=== PATIENT | female | born 1940 | race Caucasian/White ===

== ENCOUNTER → 2017-12-24 08:25 | Outpatient (CLI) | payer MEDICARE, BC, SELFPAY ==
--- NOTE | 2017-12-24 08:28 | DI.RAD.S_ITS ---
PROCEDURE: XR RIBS RT 2V INDICATIONS: pain right upper flank TECHNIQUE: 2 views of the right ribs were acquired. COMPARISON: [facility], , CHEST 2 VIEW, 07/12/2017, 15:19. FINDINGS: Surgical changes and devices: None. Bones and chest wall: Acute fracture right fifth rib. No suspicious bony lesions. Overlying soft tissues appear unremarkable. Lungs and pleura: The visualized lung appears clear. No pleural effusions or pneumothorax are visible. IMPRESSION: Fracture right fifth rib, and no pneumothorax. Dictated by: Milton Zavaleta M.D. on 12/24/2017 at 8:46 Approved by: Milton Zavaleta M.D. on 12/24/2017 at 8:49
== END ==
PROVIDERS: Family Provider Physician Assistant; PCP Physician Assistant
DX: S22.31XA Fracture of one rib, right side, initial encounter for closed fracture (principal)
CPT/HCPCS: 71100

== ENCOUNTER → 2018-05-20 08:08 | Outpatient (CLI) | payer MEDICARE, BC, SELFPAY ==
[2018-05-20 09:16] LABS: Alanine Aminotransferase 30 IU/L (9-52); Albumin 4.2 g/dL (3.5-5.0); Albumin Globulin Ratio 1.4 (1.0-2.8); Alkaline Phosphatase 76 U/L (38-126); Aspartate Aminotransferase 32 IU/L (14-36); BUN Creatinine Ratio 41.4 (6-22); Bilirubin Total 0.6 mg/dL (0.2-1.3); Blood Urea Nitrogen 29 mg/dL (7-17); Calcium 9.1 mg/dL (8.4-10.2); Carbon Dioxide 30 mmol/L (22-32); Chloride 105 mmol/L (98-107); Cholesterol 132 mg/dL (140-199); Estimated Glomerular Filt Rate > 60.0 mL/min (>60); Globulin 3.1 g/dL (1.7-4.1); Glucose 91 mg/dL (80-110); HDL Cholesterol 60 mg/dL (40-60); HEMOLYSIS < 15 (0-50); LDL Cholesterol Calculated 57 mg/dL (<100); Potassium 3.7 mmol/L (3.4-5.1); Sodium 144 mmol/L (137-145); Total Protein 7.3 g/dL (6.3-8.2); Triglycerides 73 mg/dL (35-150)
== END ==
PROVIDERS: Family Provider Physician Assistant; PCP Physician Assistant; Visit Provider Internal Medicine Cardiovascular Disease
DX: I25.10 Atherosclerotic heart disease of native coronary artery without angina pectoris (principal)
CPT/HCPCS: 36415; 80053; 80061

== ENCOUNTER → 2018-05-29 09:55 | Outpatient (CLI) | payer MEDICARE, BC, SELFPAY ==
--- NOTE | 2018-05-29 09:58 | DI.RAD.S_ITS ---
PROCEDURE: XR KNEE LT 3V INDICATIONS: LEFT KNEE PAIN - CHRONIC TECHNIQUE: 3 views of the knee were acquired. COMPARISON: None. FINDINGS: Bones: No fractures or dislocations. No suspicious bony lesions. Chondrocalcinosis is present. There is mild narrowing of the medial and lateral joint spaces. Diffuse degenerative spurring. Small joint effusion. IMPRESSION: Mild degenerative joint disease. Small joint effusion. Chondrocalcinosis. Dictated by: Dl Purdy M.D. on 05/29/2018 at 13:38 Approved by: Dl Purdy M.D. on 05/29/2018 at 13:39
== END ==
PROVIDERS: Family Provider Physician Assistant; PCP Physician Assistant; Visit Provider Physician Assistant
DX: M25.562 Pain in left knee (principal); M17.12 Unilateral primary osteoarthritis, left knee; M25.462 Effusion, left knee; M11.262 Other chondrocalcinosis, left knee
CPT/HCPCS: 73562

== ENCOUNTER → 2018-06-27 09:03 | Outpatient (CLI) | payer MEDICARE, BC, SELFPAY ==
[2018-06-27 11:11] LABS: BUN Creatinine Ratio 37.1 (6-22); Blood Urea Nitrogen 26 mg/dL (7-17); Calcium 9.4 mg/dL (8.4-10.2); Carbon Dioxide 26 mmol/L (22-32); Chloride 99 mmol/L (98-107); Estimated Glomerular Filt Rate > 60.0 mL/min (>60); Glucose 86 mg/dL (80-110); HEMOLYSIS < 15 (0-50); Potassium 4.4 mmol/L (3.4-5.1); Sodium 137 mmol/L (137-145)
== END ==
PROVIDERS: Family Provider Physician Assistant; PCP Physician Assistant; Visit Provider Internal Medicine Cardiovascular Disease
DX: I10 Essential (primary) hypertension (principal)
CPT/HCPCS: 36415; 80048

== ENCOUNTER → 2019-05-16 11:02 | Outpatient (CLI) | payer MEDICARE, BC, SELFPAY ==
[2019-05-16 12:48] LABS: Alanine Aminotransferase 25 IU/L (<35); Albumin 4.3 g/dL (3.5-5.0); Albumin Globulin Ratio 1.6 (1.0-2.8); Alkaline Phosphatase 88 U/L (38-126); Aspartate Aminotransferase 32 IU/L (14-36); BUN Creatinine Ratio 32.9 (6-22); Bilirubin Total 0.8 mg/dL (0.2-1.3); Blood Urea Nitrogen 23 mg/dL (7-17); Calcium 9.7 mg/dL (8.4-10.2); Carbon Dioxide 28 mmol/L (22-32); Chloride 102 mmol/L (98-107); Cholesterol 147 mg/dL (140-199); Estimated Glomerular Filt Rate > 60.0 mL/min (>60); Globulin 2.7 g/dL (1.7-4.1); Glucose 97 mg/dL (80-110); HDL Cholesterol 64 mg/dL (40-60); HEMOLYSIS < 15 (0-50); LDL Cholesterol Calculated 64 mg/dL (<100); Potassium 4.2 mmol/L (3.4-5.1); Sodium 140 mmol/L (137-145); Triglycerides 94 mg/dL (35-150)
[2019-05-16 13:04] LABS: Creatinine Urine Random 162.1 mg/dL
[2019-05-16 13:09] LABS: Microalbumi Creatinin Ratio Ur 9.8 ug/mg CR (<30); Microalbumin Urine Random 1.6 mg/dL (0-1.6)
[2019-05-16 13:20] LABS: Vitamin D 25 Hydroxy (D3) 27.9 ng/mL (30.0-100.0)
== END ==
PROVIDERS: PCP Physician Assistant; Visit Provider Physician Assistant
DX: E78.5 Hyperlipidemia, unspecified (principal); I10 Essential (primary) hypertension; I25.10 Atherosclerotic heart disease of native coronary artery without angina pectoris; M81.0 Age-related osteoporosis without current pathological fracture
CPT/HCPCS: 36415; 80053; 80061; 82043; 82306; 82570

== ENCOUNTER → 2019-11-12 07:27 | Outpatient (CLI) | payer MEDICARE, BC, SELFPAY ==
--- NOTE | 2019-11-12 07:31 | DI.RAD.S_ITS ---
PROCEDURE: XR CHEST 2V INDICATIONS: coronary disease TECHNIQUE: 2 views of the chest were acquired. COMPARISON: [facility], , CHEST 2 VIEW, 07/12/2017, 15:19. FINDINGS: Surgical changes and devices: None. Lungs and pleura: Scattered subsegmental atelectasis and/or scarring. No focal consolidation. No pleural effusions or pneumothorax. Mediastinum: Mediastinal contours are normal. Heart size is normal. Bones and chest wall: No suspicious bony abnormalities. Soft tissues appear unremarkable. IMPRESSION: No acute disease. Dictated by: Dl Purdy M.D. on 11/12/2019 at 9:04 Approved by: Dl Purdy M.D. on 11/12/2019 at 9:06
[2019-11-12 08:45] LABS: Alanine Aminotransferase 25 IU/L (<35); Albumin 4.2 g/dL (3.5-5.0); Albumin Globulin Ratio 1.6 (1.0-2.8); Alkaline Phosphatase 99 U/L (38-126); Aspartate Aminotransferase 34 IU/L (14-36); BUN Creatinine Ratio 40.6 (6-22); Bilirubin Total 0.7 mg/dL (0.2-1.3); Blood Urea Nitrogen 26 mg/dL (7-17); Calcium 9.6 mg/dL (8.4-10.2); Carbon Dioxide 29 mmol/L (22-32); Chloride 103 mmol/L (98-107); Cholesterol 142 mg/dL (140-199); Estimated Glomerular Filt Rate > 60.0 mL/min (>60); Globulin 2.7 g/dL (1.7-4.1); Glucose 98 mg/dL (80-110); HDL Cholesterol 61 mg/dL (40-60); HEMOLYSIS < 15 (0-50); LDL Cholesterol Calculated 56 mg/dL (<100); Potassium 4.6 mmol/L (3.4-5.1); Sodium 139 mmol/L (137-145); Total Protein 6.9 g/dL (6.3-8.2); Triglycerides 124 mg/dL (35-150)
== END ==
PROVIDERS: PCP Internal Medicine; Referring Provider Internal Medicine; Visit Provider Internal Medicine
DX: I25.10 Atherosclerotic heart disease of native coronary artery without angina pectoris (principal); E78.2 Mixed hyperlipidemia; I10 Essential (primary) hypertension; R31.9 Hematuria, unspecified
CPT/HCPCS: 36415; 71046; 80053; 80061; 87077; 87086; 87186

== ENCOUNTER → 2019-12-15 11:51 | Outpatient (CLI) | payer MEDICARE, BC, SELFPAY ==
[2019-12-15 12:18] LABS: Appearance Urine UA SL CLOUDY; Bilirubin Urine UA NEGATIVE (NEGATIVE); Color Urine UA YELLOW; Glucose Urine UA NEGATIVE (Negative); Ketones Urine UA TRACE (NEGATIVE); Leukocyte Esterase Urine UA 2+ (NEGATIVE); Nitrite Urine UA NEGATIVE (Negative); Occult Blood Urine UA 3+ (Negative); Protein Urine UA NEGATIVE (Negative); Urobilinogen Urine UA 0.2 E.U./dL (0.2)
[2019-12-15 12:23] LABS: pH Urine UA 5.5 (4.5-8.0)
[2019-12-15 12:34] LABS: Bacteria Urine Moderate (10-30); RBC Urine 1-5/HPF (0-5/HPF); Squamous Epithelial Cell Urine 0-1 /HPF (0-5/HPF); WBC Urine >100/HPF (0-5/HPF)
[2019-12-15 12:35] LABS: Culture Indicated Urine Specimen Cultured
== END ==
PROVIDERS: PCP Internal Medicine
DX: R39.9 Unspecified symptoms and signs involving the genitourinary system (principal)
CPT/HCPCS: 81001; 87077; 87086; 87186

== ENCOUNTER → 2020-06-10 09:02 | Outpatient (CLI) | payer MEDICARE, BC, SELFPAY ==
[2020-06-10] MEDS: COVID-19 VACC #1, MRNA(MOD) 100 MCG/0.5 ML VIAL IM (09:09)
== END ==
PROVIDERS: PCP Internal Medicine; Visit Provider Internal Medicine
DX: Z23 Encounter for immunization (principal)
CPT/HCPCS: 0011A; 91301

== ENCOUNTER → 2020-07-08 08:50 | Outpatient (CLI) | payer MEDICARE, BC, SELFPAY ==
[2020-07-08] MEDS: COVID-19 VACC #2, MRNA(MOD) 100 MCG/0.5 ML VIAL IM (08:52)
== END ==
PROVIDERS: PCP Internal Medicine; Visit Provider Internal Medicine
DX: Z23 Encounter for immunization (principal)
CPT/HCPCS: 0012A; 91301

== ENCOUNTER → 2020-08-23 09:49 | Outpatient (CLI) | payer MEDICARE, BC, SELFPAY ==
--- NOTE | 2020-08-23 | DI.MG.S_ITS ---
BILATERAL DIGITAL SCREENING MAMMOGRAM 3D/2D WITH CAD: 08/23/2020 CLINICAL: Routine screening. Family history of breast cancer. Comparison is made to exams dated: 09/09/2017 mammogram, 09/06/2016 mammogram, and 08/12/2015 mammogram - [facility]. The tissue of both breasts is heterogeneously dense. This may lower the sensitivity of mammography. Current study was also evaluated with a Computer Aided Detection (CAD) system. There are benign calcifications in both breasts. No significant masses, calcifications, or other findings are seen in either breast. There has been no significant interval change. IMPRESSION: BENIGN There is no mammographic evidence of malignancy. A 1 year screening mammogram is recommended. This exam was interpreted at Station ID: [id number]. NOTE: For mammograms, a report in lay terms will be sent to the patient. Approximately 15% of breast malignancies will not be visualized mammographically. In the management of a palpable breast mass, a negative mammogram must not discourage biopsy of a clinically suspicious lesion. Electronically Signed By: Noman France acr/penrad:08/23/2020 10:37:48 letter sent: Normal Exam ACR BI-RADS Category 2: Benign Finding(s) 3342F
--- NOTE | 2020-08-23 09:54 | DI.RAD.S_ITS ---
PROCEDURE: XR CHEST 2V INDICATIONS: cough TECHNIQUE: 2 views of the chest were acquired. COMPARISON: [facility], CR, XR CHEST 2V, 11/12/2019, 7:33. FINDINGS: Surgical changes and devices: None. Lungs and pleura: Lungs are clear. No pleural effusions or pneumothorax. Mediastinum: Mediastinal contours are normal. Heart size is normal. Bones and chest wall: No suspicious bony abnormalities. Soft tissues appear unremarkable. IMPRESSION: Normal for age, source of current cough symptoms is not seen. Dictated by: Dudley Rome M.D. on 08/23/2020 at 12:01 Approved by: Dudley Rome M.D. on 08/23/2020 at 12:01
== END ==
PROVIDERS: PCP Internal Medicine; Referring Provider Internal Medicine; Visit Provider Internal Medicine
DX: Z12.31 Encounter for screening mammogram for malignant neoplasm of breast (principal); Z80.3 Family history of malignant neoplasm of breast
CPT/HCPCS: 71046; 77063; 77067

== ENCOUNTER → 2020-08-23 12:09 | Outpatient (CLI) | payer MEDICARE, BC, SELFPAY ==
--- NOTE | 2020-08-23 12:11 | DI.RAD.S_ITS ---
PROCEDURE: XR TOE RT MIN 2V INDICATIONS: Right toe pain TECHNIQUE: 3 views of the 4th toe(s) acquired. COMPARISON: None. FINDINGS: Bones: No fractures or dislocations. No suspicious bony lesions. Metatarsus adductus and hallux valgus. Moderate 1st metatarsophalangeal joint degeneration. Soft tissues: No suspicious soft tissue densities. IMPRESSION: 1. No acute osseous abnormalities in the 4th toe. 2. Metatarsus adductus and hallux valgus. 3. Moderate 1st MTP joint degeneration. Dictated by: Micheal Velázquez M.D. on 08/23/2020 at 17:41 Approved by: Micheal Velázquez M.D. on 08/23/2020 at 17:43
== END ==
PROVIDERS: PCP Internal Medicine; Referring Provider Student in an Organized Health Care Education/Training Program; Visit Provider Student in an Organized Health Care Education/Training Program
DX: M79.89 Other specified soft tissue disorders (principal); M79.674 Pain in right toe(s); M20.11 Hallux valgus (acquired), right foot; M24.574 Contracture, right foot; M19.071 Primary osteoarthritis, right ankle and foot; R05 Cough
CPT/HCPCS: 71046; 73660

== ENCOUNTER → 2020-09-12 14:55 | Outpatient (CLI) | payer MEDICARE, BC, SELFPAY ==
[2020-09-12 16:05] LABS: COVID19 -Nasal RAPID Negative (Negative)
== END ==
PROVIDERS: PCP Internal Medicine; Referring Provider Internal Medicine; Visit Provider Internal Medicine
DX: Z20.822 Contact with and (suspected) exposure to COVID-19 (principal)
CPT/HCPCS: 87635; C9803

== ENCOUNTER → 2020-09-13 12:29 | Outpatient (CLI) | payer MEDICARE, BC, SELFPAY ==
--- NOTE | 2020-09-16 07:14 | P.PFT.S_ITS ---
Pulmonary Function Test Referral & Results Date Patient Seen: 09/13/20 Requesting provider: Jose Balderas Results: The spirometry demonstrates an FVC of 2.63 L which is 114% of predicted. The FEV1 was measured at 1.88 L which is 111% of predicted. The FEV1/FVC ratio was 71 which is 97% of predicted. Following the administration of bronchodilator there was no appreciable change to above normal numbers. Lung volumes show an SVC of 2.69 L which is 111% of predicted. The diffusing capacity was measured at 14.61 which is 67% of predicted. No hemoglobin value was provided, so no correction for potential anemia could be made, if appropriate. The maximum voluntary ventilation was severely reduced Interpretation: This study demonstrates normal spirometry. Diffusing capacity is minimally re duced suggesting element of disease at the capillary alveolar level. Maximum voluntary ventilation is severely reduced suggesting significant neuromuscular disease given lack of findings in other aspects of this study Clinical correlation suggested
== END ==
PROVIDERS: PCP Internal Medicine; Referring Provider Internal Medicine; Visit Provider Internal Medicine
DX: R06.02 Shortness of breath (principal); R06.00 Dyspnea, unspecified; Z87.891 Personal history of nicotine dependence; J98.8 Other specified respiratory disorders
CPT/HCPCS: 94060; 94726; 94729

== ENCOUNTER → 2021-05-16 10:18 | Outpatient (CLI) | payer MEDICARE, BC, SELFPAY ==
[2021-05-16 11:25] LABS: Alanine Aminotransferase 23 IU/L (<35); Albumin 4.3 g/dL (3.5-5.0); Albumin Globulin Ratio 1.5 (1.0-2.8); Alkaline Phosphatase 87 U/L (38-126); Aspartate Aminotransferase 29 IU/L (14-36); BUN Creatinine Ratio 39.4 (6-22); Bilirubin Total 0.7 mg/dL (0.2-1.3); Blood Urea Nitrogen 26 mg/dL (7-17); Calcium 9.8 mg/dL (8.4-10.2); Carbon Dioxide 32 mmol/L (22-32); Chloride 101 mmol/L (98-107); Cholesterol 153 mg/dL (140-199); Estimated Glomerular Filt Rate > 60.0 mL/min (>60); Globulin 2.8 g/dL (1.7-4.1); Glucose 97 mg/dL (80-110); HDL Cholesterol 67 mg/dL (40-60); HEMOLYSIS < 15 (0-50); LDL Cholesterol Calculated 66 mg/dL (<100); Potassium 4.1 mmol/L (3.4-5.1); Sodium 138 mmol/L (137-145); Total Protein 7.1 g/dL (6.3-8.2); Triglycerides 100 mg/dL (35-150)
== END ==
PROVIDERS: PCP Internal Medicine; Referring Provider Internal Medicine Cardiovascular Disease; Visit Provider Internal Medicine Cardiovascular Disease
DX: E78.5 Hyperlipidemia, unspecified (principal)
CPT/HCPCS: 36415; 80053; 80061

== ENCOUNTER → 2021-07-28 14:47 | Outpatient (CLI) | payer MEDICARE, BC, SELFPAY ==
--- NOTE | 2021-07-28 15:05 | DI.RAD.S_ITS ---
PROCEDURE: XR ACUTE ABDOMEN SERIES INDICATIONS: diarrhea TECHNIQUE: One view chest and two views of the abdomen were acquired. COMPARISON: None. FINDINGS: Surgical changes and devices: None. Chest: Lungs are clear. Heart size is normal. No pleural effusions. No pneumoperitoneum. Abdomen: Bowel gas pattern is normal. Scattered colonic stool is present. No suspicious calcifications. Visualized solid organ contours appear normal. Bones: No suspicious bony lesions. IMPRESSION: Scattered colonic stool. No gross obstruction. Dictated by: Leigh Segura M.D. on 07/28/2021 at 17:05 Approved by: Leigh Segura M.D. on 07/28/2021 at 17:06
[2021-07-28 15:23] LABS: Add Manual Diff / Slide Review NO; Basophils Absolute Auto 100 /uL (0-100); Eosinophils Absolute Auto 400 /uL (0-450); Eosinophils Percent Auto 5.6 % (2-4); Hematocrit 38.5 % (36-46); Hemoglobin 13.4 g/dL (12.0-16.0); Lymphocytes Absolute Auto 2200 /uL (1100-4500); Lymphocytes Percent Auto 30.3 % (25-40); Mean Corpuscular HGB Conc 34.9 % (30-36); Mean Corpuscular Hemoglobin 31.5 PG (26-34); Mean Corpuscular Volume 90.2 fL (80-100); Monocytes Absolute Auto 700 /uL (0-900); Monocytes Percent Auto 10.1 % (3-14); Neutrophils Absolute Auto 3900 /uL (1500-7000); Platelet Count 247 X10^3/uL (150-400); Red Blood Cell Count 4.27 X10^6/uL (4.0-5.2); Red Cell Distribution Width 13.6 % (11.6-14.8); White Blood Cell Count 7.3 X10^3/uL (4.5-11.0)
[2021-07-28 15:30] LABS: Prothrombin Time 11.7 SECONDS (10.1-12.7)
[2021-07-28 15:32] LABS: PTT Partial Thromboplastin Tim 39 SECONDS (26.4-36.2)
[2021-07-28 16:02] LABS: Alanine Aminotransferase 22 IU/L (<35); Albumin 4.3 g/dL (3.5-5.0); Albumin Globulin Ratio 1.4 (1.0-2.8); Alkaline Phosphatase 89 U/L (38-126); Aspartate Aminotransferase 35 IU/L (14-36); BUN Creatinine Ratio 26.7 (6-22); Bilirubin Total 0.7 mg/dL (0.2-1.3); Blood Urea Nitrogen 23 mg/dL (7-17); Calcium 9.1 mg/dL (8.4-10.2); Carbon Dioxide 30 mmol/L (22-32); Chloride 102 mmol/L (98-107); Estimated Glomerular Filt Rate > 60.0 mL/min (>60); Globulin 3.1 g/dL (1.7-4.1); Glucose 138 mg/dL (80-110); HEMOLYSIS 44 (0-50); Potassium 4.1 mmol/L (3.4-5.1); Sodium 137 mmol/L (137-145); Total Protein 7.4 g/dL (6.3-8.2)
[2021-07-28 16:50] LABS: Free T4, Direct Thyroxine 1.23 ng/dL (0.78-2.19)
[2021-07-28 17:04] LABS: Thyroid Stimulating Hormone 1.67 uIU/mL (0.47-4.68)
== END ==
PROVIDERS: PCP Internal Medicine; Referring Provider Internal Medicine; Visit Provider Internal Medicine
DX: I10 Essential (primary) hypertension (principal); K57.30 Diverticulosis of large intestine without perforation or abscess without bleeding; R19.7 Diarrhea, unspecified
CPT/HCPCS: 36415; 74022; 80053; 84439; 84443; 85025; 85610; 85730

== ENCOUNTER → 2021-08-29 10:05 | Outpatient (CLI) | payer MEDICARE, BC, SELFPAY ==
--- NOTE | 2021-08-29 | DI.MG.S_ITS ---
BILATERAL DIGITAL SCREENING MAMMOGRAM 3D/2D WITH CAD: 08/29/2021 CLINICAL: Routine screening. Family history of breast cancer. Comparison is made to exams dated: 08/23/2020 mammogram, 09/09/2017 mammogram, and 09/06/2016 mammogram - [facility]. The tissue of both breasts is heterogeneously dense. This may lower the sensitivity of mammography. Current study was also evaluated with a Computer Aided Detection (CAD) system. There are benign calcifications in both breasts. No significant masses, calcifications, or other findings are seen in either breast. There has been no significant interval change. IMPRESSION: BENIGN There is no mammographic evidence of malignancy. A 1 year screening mammogram is recommended. This exam was interpreted at Station ID: [id number]. NOTE: For mammograms, a report in lay terms will be sent to the patient. Approximately 15% of breast malignancies will not be visualized mammographically. In the management of a palpable breast mass, a negative mammogram must not discourage biopsy of a clinically suspicious lesion. Electronically Signed By: James mullins/catrachita:08/29/2021 11:53:00 letter sent: Normal Exam ACR BI-RADS Category 2: Benign Finding(s) 3342F
== END ==
PROVIDERS: PCP Internal Medicine; Referring Provider Internal Medicine; Visit Provider Internal Medicine
DX: Z12.31 Encounter for screening mammogram for malignant neoplasm of breast (principal); Z80.3 Family history of malignant neoplasm of breast
CPT/HCPCS: 77063; 77067

== ENCOUNTER → 2022-07-09 11:51 | Outpatient (CLI) | payer MEDICARE, BC, SELFPAY ==
--- NOTE | 2022-07-09 11:55 | DI.RAD.S_ITS ---
PROCEDURE: XR CHEST 2V INDICATIONS: cough TECHNIQUE: 2 views of the chest were acquired. COMPARISON: [facility], CR, XR CHEST 2V, 08/23/2020, 10:00. [facility], CR, XR CHEST 2V, 11/12/2019, 7:33. FINDINGS: Surgical changes and devices: None. Lungs and pleura: Lungs are clear. No pleural effusions or pneumothorax. Mediastinum: Mediastinal contours are normal. Heart size is normal. Bones and chest wall: No suspicious bony abnormalities. Soft tissues appear unremarkable. IMPRESSION: No acute cardiopulmonary abnormality. Dictated by: Álvaro Cardoso M.D. on 07/09/2022 at 15:27 Approved by: Álvaro Cardoso M.D. on 07/09/2022 at 15:29
== END ==
PROVIDERS: PCP Internal Medicine; Referring Provider Internal Medicine; Visit Provider Internal Medicine
DX: R05.9 Cough, unspecified (principal)
CPT/HCPCS: 71046

== ENCOUNTER → 2022-08-01 09:12 | Outpatient (CLI) | payer MEDICARE, BC, SELFPAY ==
[2022-08-01 09:44] LABS: Estimated Glomerular Filt Rate > 60 mL/min (>60)
--- NOTE | 2022-08-01 09:53 | DI.CT.S_ITS ---
PROCEDURE: CT ANGIO NECK INDICATIONS: Occlusion and stenosis of bilateral carotid arteries TECHNIQUE: After the administration of intravenous contrast, 1.5 mm axial sections acquired from the aortic arch to the [place]. Maximum intensity projection (MIP) reformats were then performed. COMPARISON: None. FINDINGS: Image quality: Excellent. Carotid system: The great vessels demonstrate a conventional anatomy as they arise from the aortic arch. Atherosclerotic calcification is noted. The origins of the common carotid arteries appear patent. The common carotid arteries demonstrate normal calibers and courses. The left carotid bifurcation is within normal limits, without a hemodynamically significant stenosis. The right carotid bifurcation region is irregular, with an approximately 70% stenosis seen at a site of tortuosity and a kink within the right proximal internal carotid artery. Posterior circulation: The origins of the vertebral arteries appear patent. The more superior portions of the vertebral arteries demonstrate normal course and caliber. They join to form a normal appearing basilar artery. The left vertebral artery is dominant to the right. Soft tissues: Visualized neck soft tissues demonstrate no suspicious abnormalities. Thyroid gland demonstrates no significant abnormality. Bones: No suspicious bony lesions. Visualized cervical spine appears normally aligned. Moderate cervical spine degenerative changes can be seen. IMPRESSION: There is an approximately 70% stenosis seen involving the right proximal internal carotid artery at a site of a kink within the tortuous right internal carotid artery. Any quantitative stenosis measurements were performed using the NASCET criteria. Dictated by: Shashank German M.D. on 08/01/2022 at 9:54 Approved by: Shashank German M.D. on 08/01/2022 at 9:57
== END ==
PROVIDERS: Radiology Diagnostic Radiology; PCP Internal Medicine; Referring Provider Surgery Vascular Surgery; Visit Provider Surgery Vascular Surgery
DX: I65.21 Occlusion and stenosis of right carotid artery (principal); I25.10 Atherosclerotic heart disease of native coronary artery without angina pectoris
CPT/HCPCS: 36415; 70498; 82565; Q9967

== ENCOUNTER → 2022-08-27 08:23 | Outpatient (CLI) | payer MEDICARE, BC, SELFPAY ==
[2022-08-27 09:15] LABS: Cholesterol 141 mg/dL (140-199); HDL Cholesterol 37 mg/dL (40-60); LDL Cholesterol Calculated 78 mg/dL (<100); Triglycerides 132 mg/dL (35-150)
== END ==
PROVIDERS: PCP Internal Medicine; Referring Provider Nurse Practitioner; Visit Provider Nurse Practitioner
DX: E78.5 Hyperlipidemia, unspecified (principal)
CPT/HCPCS: 36415; 80061

== ENCOUNTER → 2022-08-30 12:03 | Outpatient (CLI) | payer MEDICARE, BC, SELFPAY ==
--- NOTE | 2022-08-30 | DI.MG.S_ITS ---
BILATERAL DIGITAL SCREENING MAMMOGRAM 3D/2D WITH CAD: 08/30/2022 CLINICAL: Routine screening. Family history of breast cancer. Comparison is made to exams dated: 08/29/2021 mammogram, 08/23/2020 mammogram, 09/06/2016 mammogram, and 09/09/2017 mammogram - [facility]. Both breasts are heterogeneously dense, which may obscure small masses (category c / 51-75% glandular tissue). Current study was also evaluated with a Computer Aided Detection (CAD) system. There are benign calcifications in both breasts. No significant masses, calcifications, or other findings are seen in either breast. There has been no significant interval change. IMPRESSION: BENIGN There is no mammographic evidence of malignancy. A 1 year screening mammogram is recommended. Based on the Tyrer Cuzick model (a risk assessment model) the patient's lifetime risk is 1.3% and her 10 year risk is 0.0%. According to the ACR, ACS, and NCCN guidelines, an annual breast MRI exam along with mammogram is recommended if the patient's lifetime risk is 20% or greater. This exam was interpreted at Station ID: [id number]. NOTE: For mammograms, a report in lay terms will be sent to the patient. Approximately 15% of breast malignancies will not be visualized mammographically. In the management of a palpable breast mass, a negative mammogram must not discourage biopsy of a clinically suspicious lesion. Electronically Signed By: Jarad santos/catrachita:08/30/2022 14:43:46 letter sent: Normal Exam ACR BI-RADS Category 2: Benign Finding(s) 3342F
== END ==
PROVIDERS: PCP Internal Medicine; Referring Provider Internal Medicine; Visit Provider Internal Medicine
DX: Z12.31 Encounter for screening mammogram for malignant neoplasm of breast (principal); Z80.3 Family history of malignant neoplasm of breast
CPT/HCPCS: 77063; 77067

== ENCOUNTER → 2023-01-21 09:41 | Outpatient (CLI) | payer MEDICARE, BC, SELFPAY | PROVIDERS: PCP Internal Medicine; Visit Provider Registered Nurse | DX: R30.0 Dysuria (principal) | CPT/HCPCS: 87077; 87086; 87186 ==

== ENCOUNTER 2023-02-02 08:10 | Emergency (ER) | payer MEDICARE, BC, SELFPAY ==
[2023-02-02 08:15] VITALS: BP 126/79; PULSE 68; RESP 18; TEMP 36.1; O2SAT 100
--- NOTE | 2023-02-02 08:16 | DI.RAD.S_ITS ---
PROCEDURE: XR CHEST 2V INDICATIONS: cough, sputum production TECHNIQUE: 2 views of the chest were acquired. COMPARISON: [facility], CR, XR CHEST 2V, 07/09/2022, 11:59. [facility], CR, XR CHEST 2V, 08/23/2020, 10:00. FINDINGS: Surgical changes and devices: None. Lungs and pleura: Diffuse, the interstitium, not significantly changed from prior imaging. No dense consolidation or pleural effusion. Mediastinum: Heart size is at the upper limit of normal. Bones and chest wall: Degenerative changes. IMPRESSION: No acute radiographic changes. Nonspecific mildly prominent interstitium, correlate with any clinical signs of bronchitis. Dictated by: Kenny Irvin M.D. on 02/02/2023 at 8:54 Approved by: Kenny Irvin M.D. on 02/02/2023 at 8:55
--- NOTE | 2023-02-02 08:17 | ED.GENADULT ---
HPI - General Adult General Chief complaint: Upper Respiratory Symptoms Stated complaint: Breathing problems Time Seen by Provider: 02/02/23 08:12 History of Present Illness HPI narrative: 82-year-old female former smoker with history of hypertension presents with a chief complaint of chest congestion and a harsh cough over the past 7 days or so. She has begun spitting up phlegm. She denies any fever or chills. She is not short of breath and denies nausea, vomiting or diarrhea. She denies any chest pain. She denies exposure to obviously ill persons. She denies any abdominal pain constipation or diarrhea. She has no urinary symptoms such as dysuria, frequency or urgency. She denies recent travel or history of blood clot Related Data Home Medications Medication Instructions Recorded Confirmed coenzyme Q10 100 mg capsule (Co 100 mg PO DAILY 11/11/17 01/21/23 Q-10) aspirin 81 mg tablet,delayed 81 mg PO DAILY 11/10/19 01/21/23 release atorvastatin 40 mg tablet 40 mg PO DAILY 11/10/19 01/21/23 losartan 50 mg-hydrochlorothiazide 1 tab PO DAILY 07/28/21 01/21/23 12.5 mg tablet Previous Rx's Medication Instructions Recorded metoprolol succinate 25 mg See Rx Instructions .Route 05/15/19 tablet,extended release 24 hr .COMPLEX #45 tabs methylprednisolone 4 mg tablets in See Rx Instructions PO PER PKG DIR 07/09/22 a dose pack #21 ea benzonatate 200 mg capsule 200 mg PO BID PRN cough #20 caps 02/02/23 doxycycline hyclate 100 mg tablet 100 mg PO BID #20 tabs 02/02/23 prednisone 20 mg tablet 20 mg PO DAILY #5 tabs 02/02/23 Allergies Allergy/AdvReac Type Severity Reaction Status Date / Time Sulfa (Sulfonamide Allergy Severe HIVES Verified 01/21/23 09:48 Antibiotics) [SULFA (SULFONAMIDE ANTIBIOTICS)] Review of Systems Review of Systems Narrative: GENERAL: See HPI HEENT: See HPI RESPIRATORY: See HPI CARDIOVASCULAR: Denies chest pain, palpitations, orthopnea, edema, GASTROINTESTINAL: Denies nausea, vomiting, abdominal pain, diarrhea, constipation, melena. : Denies dysuria, frequency, incontinence, hematuria, urinary retention. MUSCULOSKELETAL: denies weakness, joint pain, or bony pain SKIN: Denies rash, skin lesions, or other NEUROLOGIC: Denies weakness, headache, numbness, change in speech, confusion, seizures, incoordination. PSYCHIATRIC: No concerning psychosocial issues. 12 point review of systems is negative except for those stated above Patient History Medical History (Updated 02/02/23 @ 09:09 by Jose Enrique Patton DO) Aortic regurgitation (~07/2015) COPD (chronic obstructive pulmonary disease) (2013) Coronary artery disease (Unknown) Essential hypertension Foot pain (2014) Genital warts (2008) Mitral regurgitation Mixed hyperlipidemia Skin cancer (Unknown) Sleep apnea (2013) Tricuspid regurgitation Surgical History Status post hysterectomy (1973) Family History Brother Age: 79 Prostate cancer Father Cancer Mother Heart disease Mental health problem Stroke Grandmother Heart disease Sister Age: 80 Breast cancer Social History Smoking Status: Former smoker Tobacco: How many years used: 40 second hand exposure: No alcohol intake: current substance use type: does not use Smoking Status: Former smoker Exam Narrative Exam Narrative: GENERAL: [82] year old patient appears stated age. Well-developed patient, in mild distress. HEAD: Atraumatic. Normocephalic. EYES: Pupils equal round and reactive. Extraocular motions intact. No scleral icterus. No injection or drainage. ENT: Nose without bleeding, purulent drainage. Throat without erythema, tonsillar hypertrophy or exudate. Airway patent. NECK: Trachea midline. Non tender CARDIOVASCULAR: Regular rate and rhythm without murmurs, gallops, or rubs. RESPIRATORY: Harsh sounding cough, expiratory wheeze, coarse lung sounds primarily in bases, no hypoxemia or increased work of breathing GASTROINTESTINAL: Abdomen soft, non-tender, nondistended. EXTREMITIES: No edema or joint tenderness. BACK: Nontender without deformity or crepitance. No flank tenderness. NEURO: AOx3. SKIN: No rash or erythema of visible areas Initial Vital Signs Initial Vital Signs: Vital Signs Temperature 96.9 F L 02/02/23 08:15 Pulse Rate 68 02/02/23 08:15 Respiratory Rate 18 02/02/23 08:15 Blood Pressure 126/79 02/02/23 08:15 Pulse Oximetry 100 02/02/23 08:15 Oxygen Delivery Method Room Air 02/02/23 08:15 Course Orders Ordered: ED Orders 02/02/23 08:16 Chest [XR chest 2V] Stat 02/02/23 08:18 Covid-19 + FLU A/B + RSV - PCR Stat Discontinued Medications Albuterol/Ipratropium (Albuterol/Ipratropium 3 Ml Ampul) 3 ml INH NOW ONE Stop: 02/02/23 08:17 Last Admin: 02/02/23 08:55 Dose: 3 ml Documented By: HONG Prednisone (Prednisone 20 Mg Tablet) 40 mg PO NOW ONE Stop: 02/02/23 08:17 Vital Signs Vital signs: Vital Signs - 8 hr 02/02/23 08:15 02/02/23 08:55 Temperature 96.9 F L Pulse Rate 68 60 Respiratory Rate 18 18 Blood Pressure 126/79 Pulse Oximetry 100 98 Oxygen Delivery Method Room Air Room Air Medical Decision Making Lab Data Labs: Lab Results 02/02/23 Range/Units 08:18 SARS-CoV-2 (PCR) Negative (Negative) Influenza A (RT-PCR) Flu a negative (NEGATIVE) Influenza B (RT-PCR) Flu b negative (NEGATIVE) RSV (PCR) Negative (Negative) MDM Narrative Medical decision making narrative: 82[] year old patient presents with harsh cough Multiple etiologies for patient's symptoms considered including, but not limited to: [Pneumonia versus atypical pneumonia versus COPD exacerbation versus flu versus COVID versus other] Prior Charts reviewed in our EMR Primary Historian: patient Labs reviewed and interpreted by myself: Respiratory panel demonstrates NEG Flu/Covid/RSV Imaging reviewed: Chest x-ray demonstrates perihilar fullness, no obvious infiltrates Patient's symptoms improved over duration of stay with above-stated therapies. No hypoxemia or significant work of breathing, no signs of sepsis. No need for supplemental oxygen. More significant workup not indicated at this time. Minimal improvement if any after DuoNeb. She is upright and conversive and appropriate for discharge. Given 7 days of symptoms which seemed to be slightly worsening with harsh productive cough and history of smoking she is most appropriately treated for an atypical pneumonia. Prescriptions sent to her pharmacy of choice. Findings and discharge diagnosis discussed with patient/family followed by verbalization of understanding Return precautions discussed with patient/family whom verbalize understanding of diagnosis and plan Discharge Plan Departure Patient Disposition: Home Clinical Impression: Atypical pneumonia Instructions: DI for Atypical Pneumonia Activity Restrictions/Additional Instructions: *You have been diagnosed with [atypical pneumonia. As we discussed your history and physical exam are reassuring. Your chest x-ray does not show a classic pneumonia but given your sputum production and harsh sounding cough we will treat you for atypical pneumonia] *What to do: *Please continue to take your regular medications as directed. [x ] New medication prescriptions sent to your pharmacy: [ [facility]] [ ] New medication written as a paper prescription [ ] No new medications given *Please follow up with your primary care provider in 2-3 days, call for an appointment. Let them know you were seen in the Emergency Department and that we ask that you be seen in follow up. We will electronically transmit a record of today's note if your PCP is in our system *If you do not have a primary care provider please contact the [facility] Resource line at [phone]. They will ask some questions about your medical history and help get you set up with a doctor in the community. *Return to Emergency Department if you should have any new, worsening or concerning symptoms, such as [fever greater than 101 F, shaking chills, worsening pain, persistent vomiting or other bothersome symptoms] Prescriptions: New doxycycline hyclate 100 mg tablet 100 mg PO BID Qty: 20 0RF benzonatate 200 mg capsule 200 mg PO BID PRN (Reason: cough) Qty: 20 0RF prednisone 20 mg tablet 20 mg PO DAILY Qty: 5 0RF Rx Instructions: administer with food or milk No Action coenzyme Q10 [Co Q-10] 100 mg capsule 100 mg PO DAILY metoprolol succinate 25 mg tablet extended release 24 hr See Rx Instructions .ROUTE .COMPLEX Qty: 45 0RF Dose Instruction: TAKE 1/2 TABLET BY MOUTH DAILY Rx Instructions: TAKE 1/2 TABLET BY MOUTH DAILY atorvastatin 40 mg tablet 40 mg PO DAILY aspirin 81 mg tablet,delayed release (DR/EC) 81 mg PO DAILY losartan-hydrochlorothiazide 50-12.5 mg tablet 1 tab PO DAILY methylprednisolone 4 mg tablets,dose pack See Rx Instructions PO PER PKG DIR Qty: 21 0RF Rx Instructions: PO PER PKG DIR Referrals: Jose Balderas MD [Primary Care Provider] - Stand Alone Forms: Patient Portal/API
[2023-02-02 08:55] VITALS: PULSE 60; RESP 18; O2SAT 98
[2023-02-02] MEDS: ALBUTEROL/IPRATROPIUM 3 ML AMPUL INH (08:55)
[2023-02-02 09:11] LABS: Influenza A - CEPHEID Flu A NEGATIVE (NEGATIVE); Influenza B - CEPHEID Flu B NEGATIVE (NEGATIVE); Respiratory Syncytial Virus Negative (Negative)
[2023-02-02 09:15] LABS: COVID-19 CEPHEID 4-PLEX PCR Negative (Negative)
[2023-02-02] MEDS: predniSONE 20 MG TABLET 40 MG PO (09:20)
== END 2023-02-02 09:23 | disposition home or self-care (01) ==
PROVIDERS: Emergency Provider Emergency Medicine; PCP Internal Medicine; Referring Provider Emergency Medicine
DX: J18.9 Pneumonia, unspecified organism (principal); Z87.891 Personal history of nicotine dependence
CPT/HCPCS: 0241U; 71046; 94640; 99283

== ENCOUNTER → 2023-02-19 14:02 | Outpatient (CLI) | payer MEDICARE, BC, SELFPAY | PROVIDERS: PCP Internal Medicine; Referring Provider Internal Medicine; Visit Provider Internal Medicine | DX: R06.02 Shortness of breath (principal); J44.9 Chronic obstructive pulmonary disease, unspecified; R05.3 Chronic cough; Z87.891 Personal history of nicotine dependence | CPT/HCPCS: 94060; 94726; 94729 ==

== ENCOUNTER → 2023-04-24 06:49 | Outpatient (CLI) | payer MEDICARE, BC, SELFPAY ==
--- NOTE | 2023-04-24 06:53 | DI.ECHO.S_ITS ---
[place] [facility]---------+ [facility] +---------+ : : [address] : : : : [id number] : : : : Phone: [phone] Echocardiogram Report + + :Name: ORACIO GUZMAN Study Date: 04/24/2023 Height: 61 in : :[facility] ReadingLocation: Weight: 141 lb : : Gender: Female BSA: 1.6 m2 : :: 1940 Age: 82 yrs BP: 145/84 mmHg: :Reason For Study: ATHEROSCLEROTIC HEART DISEASE : :Ordering Physician: KAT, : :JONY Performed By: Anne Vences : :Referring: MELANIA MIRANDA MD : + + Interpretation Summary The left ventricle is normal in size. The ejection fraction is estimated to be 55-60%. Akinesis of distal septum, distal anterior wall, apex and distal inferior wall. In comparison to previous study, new wall motion abnormalities. Suspect pseudonormalization type of diastolic dysfunction. The right ventricle is normal in size and function. There is mild to moderate mitral regurgitation. Previously mild MR. There is mild to moderate aortic regurgitation. Compared to the prior echo study, there has been no change in the severity of aortic regurgitation. There is mild to moderate tricuspid regurgitation. Compared to the prior echo exam, there has been no change in TR severity. The right ventricular systolic pressure is estimated to be at least 35 mmHg based on an estimated right atrial pressure of 3 mm Hg. 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 4.1 cm in diameter. No significant change from the previous study. Mild atherosclerotic plaque(s) in the aortic arch. Procedure: A two-dimensional transthoracic echocardiogram with color flow and Doppler was performed. The study quality was technically adequate. Comparison is made with the echocardiogram of 11/10/2021. The patient was in sinus rhythm with heart rates between 55-75 bpm during the exam. The patient had occasional PACs during the exam. Left Ventricle: The left ventricle is normal in size. Left ventricular wall thickness is mildly increased. Proximal septal thickening is noted. There is no echo evidence for significant left ventricular outflow tract obstruction. There is no thrombus. Trabeculae near apex are visualized. No thrombus is observed. The ejection fraction is estimated to be 55-60%. Akinesis of distal septum, distal anterior wall, apex and distal inferior wall. New wall motion abnormalities. Suspect pseudonormalization type of diastolic dysfunction. Right Ventricle: The right ventricle is normal in size and function. There has been no significant change since the previous study. Atria: The left atrium is moderately dilated. The left atrium has mildly increased in size since the prior echo exam. Right atrial size is normal. There is no Doppler evidence for an interatrial shunt. Mitral Valve: The mitral valve leaflets appear mildly thickened, but open well. There is mild mitral annular calcification. There is mild to moderate mitral regurgitation. Compared to the prior echo study, there has been an increase in the severity of mitral regurgitation. Aortic Valve: The aortic valve is trileaflet. There is no aortic valve stenosis. There is mild to moderate aortic regurgitation. Compared to the prior echo study, there has been no change in the severity of aortic regurgitation. Tricuspid Valve: The tricuspid valve is normal. There is mild to moderate tricuspid regurgitation. The right ventricular systolic pressure is estimated to be at least 35 mmHg based on an estimated right atrial pressure of 3 mm Hg. Compared to the prior echo exam, there has been no change in TR severity. Pulmonic Valve: The pulmonic valve leaflets are thin and pliable; valve motion is normal. There is mild pulmonic regurgitation. Great Vessels: The aortic root is normal size. The ascending aorta is mild- moderately enlarged. Mild atherosclerotic plaque(s) in the aortic arch. The IVC is of normal diameter and collapses greater than 50% with a sniff. This suggests a low right atrial pressure of 3 mm Hg. Pericardium/ Pleura There is no pericardial effusion. There is no pleural effusion. MMode/2D Measurements & Calculations LVIDd: 4.4 cm LVOT diam: 2.0 cm LVIDs: 3.4 cm Ao root diam: 3.4 cm FS: 23.6 % asc Aorta Diam: 4.1 cm IVSd: 1.3 cm Ao Arch Diam (Prox Trans): 3.7 cm LVPWd: 0.82 cm LV curiel. diameter/BSA (cm/m^2): 2.7 LV sys. diameter/BSA (cm/m^2): 2.1 LA A2 area: 21.3 cm2 RA long axis: 5.4 cm LA A4 area: 19.1 cm2 RA area: 16.4 cm2 LA length (vol): 5.3 cm RA vol: 42.5 ml LA vol: 64.9 ml RA : 26.1 ml/m2 LA vol index: 39.8 ml/m2 IVC diam: 1.4 cm RVD1 (basal): 3.3 cm RVD2 (mid): 1.9 cm TAPSE: 2.2 cm Doppler Measurements & Calculations Ao V2 max: 125.6 cm/sec LVOT Max Ruben: 82.6 cm/sec Ao V2 mean: 87.8 cm/sec LV V1 max P.7 mmHg Ao max P.3 mmHg LV V1 VTI: 21.3 cm Ao mean P.4 mmHg BRANDON(I,D): 2.4 cm2 Ao V2 VTI: 27.7 cm BRANDON(V,D): 2.1 cm2 sev ratio: 0.77 BRANDON indexed to BSA (cm^2/m^2): 1.5 AI P1/2t: 758.4 msec AI dec slope: 173.4 cm/sec2 MV E max ruben: 65.6 cm/sec TR max ruben: 280.9 cm/sec MV A max ruben: 58.3 cm/sec TR max P.6 mmHg MV E/A: 1.1 PA V2 max: 83.6 cm/sec Med Peak E' Ruben: 3.9 cm/sec PA V2 mean: 61.6 cm/sec E/E' med: 16.8 PA mean P.7 mmHg Lat Peak E' Ruben: 4.7 cm/sec PA pr(Accel): 31.0 mmHg E/E' lat: 13.9 E/e' average: 15.3 MV dec time: 0.21 sec SV(LVOT): 66.8 ml Reading Physician:04:59 PM
--- NOTE | 2023-04-24 06:56 | DI.US.S_ITS ---
PROCEDURE: US CAROTID DOPPLER BI INDICATIONS: Atherosclerotic heart disease stenosis carotid art TECHNIQUE: Color and pulse Doppler interrogation was performed of both carotid systems, with image documentation and velocity measurements. COMPARISON: [facility], , CAROTID ARTERY DOPPLER BILAT, 08/10/2015, 9:37. FINDINGS: Stenosis calculations are based on SRU (Society of Radiologists in Ultrasound) criteria. Right side: Common carotid artery peak systolic velocity: 81 cm/sec. Internal carotid artery peak systolic velocity: 96 cm/sec. Internal carotid artery end diastolic velocity: 24 cm/sec. External carotid artery peak systolic velocity: 57 cm/sec. ICA/CCA peak systolic ratio: 1.2 . Ward scale imaging description: Mild atherosclerotic plaque Percent internal carotid artery stenosis: Less than . Vertebral artery: Flow direction is antegrade. Left side: Common carotid artery peak systolic velocity: 47 cm/sec. Internal carotid artery peak systolic velocity: 100 cm/sec. Internal carotid artery end diastolic velocity: 37 cm/sec. External carotid artery peak systolic velocity: 45 cm/sec. ICA/CCA peak systolic ratio: 2.1 . Ward scale imaging description: Mild atherosclerotic plaque Percent internal carotid artery stenosis: Less than 50 . Vertebral artery: Flow direction is antegrade. IMPRESSION: No evidence of hemodynamically significant stenosis, bilateral proximal ICA Dictated by: Leonel Khan M.D. on 04/24/2023 at 10:40 Approved by: Leonel Khan M.D. on 04/24/2023 at 10:46
[2023-04-24 08:37] LABS: Alanine Aminotransferase 29 IU/L (<35); Albumin 3.9 g/dL (3.5-5.0); Albumin Globulin Ratio 1.4 (1.0-2.8); Alkaline Phosphatase 73 U/L (38-126); Aspartate Aminotransferase 36 IU/L (14-36); BUN Creatinine Ratio 45.2 (6-22); Bilirubin Total 0.7 mg/dL (0.2-1.3); Blood Urea Nitrogen 28 mg/dL (7-17); Calcium 9.7 mg/dL (8.4-10.2); Carbon Dioxide 30 mmol/L (22-32); Chloride 104 mmol/L (98-107); Cholesterol 113 mg/dL (140-199); Estimated Glomerular Filt Rate > 60 mL/min (>60); Globulin 2.7 g/dL (1.7-4.1); Glucose 96 mg/dL (80-110); HDL Cholesterol 53 mg/dL (40-60); HEMOLYSIS < 15 (0-50); LDL Cholesterol Calculated 37 mg/dL (<100); Potassium 4.2 mmol/L (3.4-5.1); Sodium 138 mmol/L (137-145); Total Protein 6.6 g/dL (6.3-8.2); Triglycerides 117 mg/dL (35-150)
== END ==
PROVIDERS: Nurse Practitioner; PCP Internal Medicine; Referring Provider Surgery Vascular Surgery; Visit Provider Surgery Vascular Surgery
DX: I08.3 Combined rheumatic disorders of mitral, aortic and tricuspid valves (principal); I65.23 Occlusion and stenosis of bilateral carotid arteries; I77.89 Other specified disorders of arteries and arterioles; I25.10 Atherosclerotic heart disease of native coronary artery without angina pectoris; I10 Essential (primary) hypertension; E78.5 Hyperlipidemia, unspecified
CPT/HCPCS: 36415; 80053; 80061; 93306; 93880

== ENCOUNTER → 2023-05-08 09:58 | Outpatient (CLI) | payer MEDICARE, BC, SELFPAY ==
--- NOTE | 2023-05-08 10:00 | DI.RAD.S_ITS ---
PROCEDURE: XR CHEST 2V INDICATIONS: Cough TECHNIQUE: 2 views of the chest were acquired. COMPARISON: [facility], CR, XR CHEST 2V, 02/02/2023, 8:19. [facility], CR, XR CHEST 2V, 07/09/2022, 11:59. FINDINGS: Surgical changes and devices: None. Lungs and pleura: Lungs are clear. No pleural effusions or pneumothorax. Mediastinum: Mediastinal contours are normal. Heart size is normal. Bones and chest wall: No suspicious bony abnormalities. Soft tissues appear unremarkable. IMPRESSION: No acute cardiopulmonary abnormality is seen. Dictated by: Earl Weeks M.D. on 05/08/2023 at 11:07 Approved by: Earl Weeks M.D. on 05/08/2023 at 11:11
== END ==
PROVIDERS: PCP Internal Medicine; Referring Provider Nurse Practitioner Family; Visit Provider Nurse Practitioner Family
DX: R05.9 Cough, unspecified (principal)
CPT/HCPCS: 71046

== ENCOUNTER 2023-05-13 10:48 | Emergency (ER) | payer MEDICARE, BC, SELFPAY ==
[2023-05-13 10:58] VITALS: BP 166/77; PULSE 96; RESP 19; TEMP 36.4; O2SAT 95; BMI 25.9
--- NOTE | 2023-05-13 11:06 | DI.RAD.S_ITS ---
PROCEDURE: XR CHEST 2V INDICATIONS: prolonged cough TECHNIQUE: 2 views of the chest were acquired. COMPARISON: [facility], CR, XR CHEST 2V, 05/08/2023, 10:12. [facility], CR, XR CHEST 2V, 02/02/2023, 8:19. FINDINGS: Surgical changes and devices: An apparent coronary artery stent can be seen on the lateral view. Please correlate with known patient history. Lungs and pleura: Lungs are clear. No pleural effusions or pneumothorax. Mediastinum: The cardiac contours are within normal limits. The aorta demonstrates calcification and tortuosity. Bones and chest wall: No suspicious bony abnormalities. Soft tissues appear unremarkable. IMPRESSION: No focal infiltrates are seen. No acute cardiopulmonary abnormality is seen. Dictated by: Shashank German M.D. on 05/13/2023 at 10:31 Approved by: Shashank German M.D. on 05/13/2023 at 10:32
[2023-05-13 11:31] VITALS: BP 135/67; PULSE 92; RESP 20; O2SAT 95
--- NOTE | 2023-05-13 11:39 | ED.URI ---
HPI - URI/Sore Throat <Albina Amanda PA-C - Last Filed: 05/13/23 19:12> General Chief Complaint: Upper Respiratory Symptoms Stated Complaint: bad cough, apx 1 week spells of choking on phlegm Time Seen by Provider: 05/13/23 11:21 Source: patient and family Mode of arrival: Ambulatory History of Present Illness HPI Narrative: 82-year-old female presents to the ED with 2 weeks of cough. Patient was seen last week at the walk-in clinic, had a normal chest x-ray, was prescribed Tessalon Perles and a nasal spray. Patient states that she has been taking the Robitussin and the Tessalon Perles without any relief. Patient denies fever, chills, chest pain, shortness of breath, nausea, vomiting, diarrhea. Related Data Home Medications Medication Instructions Recorded Confirmed coenzyme Q10 100 mg capsule (Co 100 mg PO DAILY 11/11/17 05/08/23 Q-10) aspirin 81 mg tablet,delayed 81 mg PO DAILY 11/10/19 05/08/23 release atorvastatin 40 mg tablet 40 mg PO DAILY 11/10/19 05/08/23 losartan 50 mg-hydrochlorothiazide 1 tab PO DAILY 07/28/21 05/08/23 12.5 mg tablet cholecalciferol (vitamin D3) 25 25 mcg PO DAILY 02/08/23 05/08/23 mcg (1,000 unit) capsule Previous Rx's Medication Instructions Recorded metoprolol succinate 25 mg See Rx Instructions .Route 05/15/19 tablet,extended release 24 hr .COMPLEX #45 tabs benzonatate 200 mg capsule 200 mg PO BID PRN cough #20 caps 02/02/23 doxycycline hyclate 100 mg tablet 100 mg PO BID #20 tabs 02/02/23 fluticasone propionate 93 2 spray intranasal BID #16 mL 02/08/23 mcg/actuation breath activated aerosol benzonatate 200 mg capsule 200 mg PO BID PRN cough #28 caps 05/08/23 codeine 10 mg-guaifenesin 100 mg/5 10 ml PO Q6H PRN cough #473 mL 05/13/23 mL oral liquid Allergies Allergy/AdvReac Type Severity Reaction Status Date / Time Sulfa (Sulfonamide Allergy Severe HIVES Verified 05/13/23 11:05 Antibiotics) [SULFA (SULFONAMIDE ANTIBIOTICS)] Review of Systems <Albina Amanda PA-C - Last Filed: 05/13/23 19:12> Constitutional Constitutional: Denies chills, Denies fatigue, Denies fever(s), Denies frequent falls, Denies lethargy and Denies weakness Eyes Eyes: Denies change in vision, Denies eye discharge, Denies irritation and Denies loss of vision ENT Ears, Nose, Mouth, and Throat: Denies change in voice, Denies dizziness, Denies neck pain, Denies sore throat and Denies throat swelling Cardiovascular Cardiovascular: Denies chest pain, Denies irregular heart rhythm, Denies lightheadedness, Denies palpitations, Denies dyspnea, Denies dyspnea on exertion and Denies orthopnea Respiratory Respiratory: Reports cough, Denies dyspnea, Denies dyspnea on exertion and Denies wheezing Gastrointestinal Gastrointestinal: Denies abdominal pain, Denies change in bowel habits, Denies diarrhea, Denies nausea and Denies vomiting Musculoskeletal Musculoskeletal: Denies neck pain and Denies numbness Integumentary/Breasts Skin/Breast: Denies pruritus, Denies erythema, Denies rash and Denies wounds Neurologic Neurologic: Denies behavioral changes, Denies confusion, Denies dizziness, Denies frequent falls, Denies loss of vision, Denies numbness and Denies weakness Psychiatric Psychiatric: Denies anxiety, Denies behavioral changes, Denies confusion, Denies depression, Denies homicidal ideation and Denies suicidal ideation Endocrine Endocrine: Denies fatigue, Denies flushing and Denies palpitations Hematologic/Lymphatic Hematologic/Lymphatic: Denies easy bruising Allergic/Immunologic Allergic/Immunologic: Denies urticaria, Denies throat swelling and Denies wheezing Patient History <Albina Amanda PA-C - Last Filed: 05/13/23 19:12> Medical History Aortic regurgitation (~07/2015) Tricuspid regurgitation Mitral regurgitation Mixed hyperlipidemia Coronary artery disease (Unknown) COPD (chronic obstructive pulmonary disease) (2013) Sleep apnea (2013) Foot pain (2014) Genital warts (2008) Skin cancer (Unknown) Essential hypertension Surgical History Status post hysterectomy (1973) Family History Brother Age: 79 Prostate cancer Father Cancer Mother Heart disease Mental health problem Stroke Grandmother Heart disease Sister Age: 80 Breast cancer Social History Smoking Status: Former smoker Tobacco: How many years used: 40 second hand exposure: No alcohol intake: current substance use type: does not use Smoking Status: Former smoker tobacco type: cigarettes alcohol intake frequency: 3 or more drinks per day Substance Use Type: does not use Exam <Albina Amanda PA-C - Last Filed: 05/13/23 19:12> Narrative Exam Narrative: Const General:?cooperative, healthy appearing and comfortable HENMT Head:?normal to inspection Ears:?hearing grossly normal bilaterally Nose:?external nose normal Face and sinus:?normal facial exam and sinuses nontender Mouth:?oral mucosae normal Throat:?posterior oropharynx normal Eyes General:?appearance normal, both eyes and all related structures Neck Neck:?normal visual inspection and no lymphadenopathy noted Resp Effort & Inspection:?normal respiratory effort Auscultation:? Diffuse bilateral wheezes Cardio Rate:?regular rate Rhythm:?regular rhythm Neuro General:?patient alert, patient awake and patient oriented x3 Initial Vital Signs Initial Vital Signs: Vital Signs Temperature 97.5 F L 05/13/23 10:58 Pulse Rate 96 H 05/13/23 10:58 Respiratory Rate 19 05/13/23 10:58 Blood Pressure 166/77 H 05/13/23 10:58 Pulse Oximetry 95 05/13/23 10:58 Oxygen Delivery Method Room Air 05/13/23 10:58 <Lala Rios DO - Last Filed: 05/14/23 13:26> Initial Vital Signs Initial Vital Signs: Vital Signs Temperature 97.5 F L 05/13/23 10:58 Pulse Rate 96 H 05/13/23 10:58 Respiratory Rate 19 05/13/23 10:58 Blood Pressure 166/77 H 05/13/23 10:58 Pulse Oximetry 95 05/13/23 10:58 Oxygen Delivery Method Room Air 05/13/23 10:58 Course <Albina Amanda PA-C - Last Filed: 05/13/23 19:12> Orders Ordered: Discontinued Medications Albuterol (Albuterol Hfa Prepack) 1 box MISC DIRECTED ONE Stop: 05/13/23 13:44 Last Admin: 05/13/23 13:47 Dose: 1 box Documented By: LATASHA Vital Signs Vital signs: Vital Signs - 8 hr 05/13/23 11:31 05/13/23 12:39 05/13/23 13:48 Pulse Rate 92 H 63 57 L Respiratory Rate 20 18 18 Blood Pressure 135/67 122/72 Pulse Oximetry 95 96 97 Oxygen Delivery Method Room Air Room Air Room Air Oxygen Flow Rate 0 Fraction of Inspired Oxygen 21 05/13/23 13:48 Pulse Rate 57 L Respiratory Rate 20 Blood Pressure 141/68 H Pulse Oximetry 97 Oxygen Delivery Method Room Air Oxygen Flow Rate Fraction of Inspired Oxygen <Lala Rios DO - Last Filed: 05/14/23 13:26> Orders Ordered: Discontinued Medications Albuterol (Albuterol Hfa Prepack) 1 box MISC DIRECTED ONE Stop: 05/13/23 13:44 Last Admin: 05/13/23 13:47 Dose: 1 box Documented By: LATASHA Vital Signs Vital signs: Vital Signs - 8 hr 05/13/23 11:31 05/13/23 12:39 05/13/23 13:48 Pulse Rate 92 H 63 57 L Respiratory Rate 20 18 18 Blood Pressure 135/67 122/72 Pulse Oximetry 95 96 97 Oxygen Delivery Method Room Air Room Air Room Air Oxygen Flow Rate 0 Fraction of Inspired Oxygen 21 05/13/23 13:48 Pulse Rate 57 L Respiratory Rate 20 Blood Pressure 141/68 H Pulse Oximetry 97 Oxygen Delivery Method Room Air Oxygen Flow Rate Fraction of Inspired Oxygen MDM - URI/Sore Throat <Albina Amanda PA-C - Last Filed: 05/13/23 19:12> Lab Data Labs: Lab Results 05/13/23 Range/Units 11:30 SARS-CoV-2 (PCR) Negative (Negative) Influenza A (RT-PCR) Flu a negative (NEGATIVE) Influenza B (RT-PCR) Flu b negative (NEGATIVE) RSV (PCR) Negative (Negative) MDM Narrative Medical decision making narrative: 82-year-old female presents to the ED with 2 weeks of cough. Concern for viral URI versus pneumonia versus other. Respiratory panel was obtained which was negative for COVID-19, influenza, RSV. On physical exam, patient had diffuse bilateral wheezes. Chest x-ray without acute findings. Patient was given albuterol and sent home with the inhaler. Recommend using the albuterol for the next few days. Also prescribed codeine guaifenesin cough syrup. Fall precautions discussed with patient. Recommend good hydration. Recommend follow-up with PCP as soon as possible. ED return precautions discussed with patient. Patient verbalized understanding. Medical records reviewed: Yes <Lala Gabriel, DO - Last Filed: 05/14/23 13:26> Lab Data Labs: Lab Results 05/13/23 Range/Units 11:30 SARS-CoV-2 (PCR) Negative (Negative) Influenza A (RT-PCR) Flu a negative (NEGATIVE) Influenza B (RT-PCR) Flu b negative (NEGATIVE) RSV (PCR) Negative (Negative) Discharge Plan Departure Patient Disposition: Home Clinical Impression: Upper respiratory infection Qualifiers: URI type: unspecified viral URI Qualified Code(s): J06.9 - Acute upper respiratory infection, unspecified Instructions: DI for Viral Upper Respiratory Infection -- Adult Activity Restrictions/Additional Instructions: You were evaluated in the ED today for a cough. You were negative for influenza, COVID-19, RSV. Your symptoms are likely due to some other viral upper respiratory infection. Please use the albuterol inhaler every 6 hours, you may also take Robitussin, Tessalon Perles and the codeine cough syrup for symptom relief. Please be aware that the codeine cough syrup will make you sleepy, therefore please refrain from taking it while driving or operating machinery. Continue to stay well hydrated. Please follow-up with your PCP as soon as possible. Return to the ED if you have worsening symptoms, chest pain, shortness of breath Prescriptions: New codeine-guaifenesin 10-100 mg/5 mL liquid 10 ml PO Q6H PRN (Reason: cough) Qty: 473 0RF No Action coenzyme Q10 [Co Q-10] 100 mg capsule 100 mg PO DAILY benzonatate 200 mg capsule 200 mg PO BID PRN (Reason: cough) Qty: 28 0RF metoprolol succinate 25 mg tablet extended release 24 hr See Rx Instructions .ROUTE .COMPLEX Qty: 45 0RF Dose Instruction: TAKE 1/2 TABLET BY MOUTH DAILY Rx Instructions: TAKE 1/2 TABLET BY MOUTH DAILY atorvastatin 40 mg tablet 40 mg PO DAILY aspirin 81 mg tablet,delayed release (DR/EC) 81 mg PO DAILY losartan-hydrochlorothiazide 50-12.5 mg tablet 1 tab PO DAILY cholecalciferol (vitamin D3) 25 mcg (1,000 unit) capsule 25 mcg PO DAILY fluticasone propionate 93 mcg/actuation aerosol breath activated 2 spray intranasal BID Qty: 16 1RF Rx Instructions: into each nostril doxycycline hyclate 100 mg tablet 100 mg PO BID Qty: 20 0RF benzonatate 200 mg capsule 200 mg PO BID PRN (Reason: cough) Qty: 20 0RF Referrals: Jose Balderas MD [Primary Care Provider] - Stand Alone Forms: Patient Portal/API ED Sign-out <Lala Rios DO - Last Filed: 05/14/23 13:26> Cosign ED Attending Cosignature Attestation: I was available for consultation.
[2023-05-13 12:25] LABS: Influenza A - CEPHEID Flu A NEGATIVE (NEGATIVE); Influenza B - CEPHEID Flu B NEGATIVE (NEGATIVE); Respiratory Syncytial Virus Negative (Negative)
[2023-05-13 12:39] VITALS: BP 122/72; PULSE 63; RESP 18; O2SAT 96
[2023-05-13 13:21] LABS: COVID-19 CEPHEID 4-PLEX PCR Negative (Negative)
[2023-05-13] MEDS: ALBUTEROL HFA PREPACK 1 BOX MISC (13:47)
[2023-05-13 13:48] VITALS: BP 141/68; PULSE 57; RESP 18; RESP 20; O2SAT 97
== END 2023-05-13 14:10 | disposition home or self-care (01) ==
PROVIDERS: Emergency Provider Student in an Organized Health Care Education/Training Program; PCP Internal Medicine
DX: J06.9 Acute upper respiratory infection, unspecified (principal); Z87.891 Personal history of nicotine dependence
CPT/HCPCS: 0241U; 71046; 94640; 99282; 99283

== ENCOUNTER → 2023-06-28 07:35 | Outpatient (CLI) | payer MEDICARE, BC, SELFPAY ==
[2023-06-28 08:58] LABS: Alanine Aminotransferase 25 IU/L (<35); Albumin Globulin Ratio 1.3 (1.0-2.8); Alkaline Phosphatase 81 U/L (38-126); Aspartate Aminotransferase 40 IU/L (14-36); BUN Creatinine Ratio 41.3 (6-22); Bilirubin Total 0.7 mg/dL (0.2-1.3); Blood Urea Nitrogen 26 mg/dL (7-17); Calcium 9.1 mg/dL (8.4-10.2); Carbon Dioxide 30 mmol/L (22-32); Chloride 103 mmol/L (98-107); Cholesterol 129 mg/dL (140-199); Estimated Glomerular Filt Rate > 60 mL/min (>60); Globulin 3.1 g/dL (1.7-4.1); Glucose 90 mg/dL (80-110); HDL Cholesterol 56 mg/dL (40-60); HEMOLYSIS < 15 (0-50); LDL Cholesterol Calculated 50 mg/dL (<100); Potassium 3.8 mmol/L (3.4-5.1); Sodium 140 mmol/L (137-145); Total Protein 7.1 g/dL (6.3-8.2); Triglycerides 115 mg/dL (35-150)
== END ==
LOC: LAB 07:37
PROVIDERS: PCP Internal Medicine; Referring Provider Nurse Practitioner; Visit Provider Nurse Practitioner
DX: E78.5 Hyperlipidemia, unspecified (principal); I10 Essential (primary) hypertension
CPT/HCPCS: 36415; 80053; 80061

== ENCOUNTER → 2023-10-01 14:30 | Outpatient (CLI) | payer MEDICARE, BC, SELFPAY ==
[2023-10-01 15:23] LABS: Influenza A - CEPHEID Flu A NEGATIVE (NEGATIVE); Influenza B - CEPHEID Flu B NEGATIVE (NEGATIVE); Respiratory Syncytial Virus Negative (Negative)
[2023-10-01 15:25] LABS: COVID-19 CEPHEID 4-PLEX PCR Negative (Negative)
== END ==
PROVIDERS: PCP Internal Medicine; Visit Provider Physician Assistant
DX: J20.9 Acute bronchitis, unspecified (principal); R09.89 Other specified symptoms and signs involving the circulatory and respiratory systems
CPT/HCPCS: 0241U

== ENCOUNTER → 2023-10-01 14:40 | Outpatient (CLI) | payer MEDICARE, BC, SELFPAY ==
[2023-10-01 17:01] LABS: TSH w/ Reflex to FT4 2.04 uIU/mL (0.47-4.68)
== END ==
PROVIDERS: PCP Internal Medicine; Referring Provider Physician Assistant; Visit Provider Physician Assistant
DX: R19.7 Diarrhea, unspecified (principal); R15.9 Full incontinence of feces; J02.9 Acute pharyngitis, unspecified; R09.89 Other specified symptoms and signs involving the circulatory and respiratory systems
CPT/HCPCS: 0241U; 36415; 84443

== ENCOUNTER → 2023-10-02 08:37 | Outpatient (CLI) | payer MEDICARE, BC, SELFPAY ==
[2023-10-02 10:40] LABS: Clostridium Difficile Tox PCR Negative for C. diff (Negative)
== END ==
PROVIDERS: PCP Internal Medicine; Referring Provider Physician Assistant; Visit Provider Physician Assistant
DX: R19.7 Diarrhea, unspecified (principal); R15.9 Full incontinence of feces
CPT/HCPCS: 87045; 87493

== ENCOUNTER → 2023-10-08 09:05 | Outpatient (CLI) | payer MEDICARE, BC, SELFPAY ==
--- NOTE | 2023-10-08 09:08 | DI.MG.S_ITS ---
BILATERAL DIGITAL SCREENING MAMMOGRAM 3D/2D WITH CAD: 10/08/2023 CLINICAL: Routine screening. Family history of breast cancer. Comparison is made to exams dated: 08/30/2022 mammogram, 08/29/2021 mammogram, and 08/23/2020 mammogram - [facility]. Both breasts are heterogeneously dense, which may obscure small masses (category c / 51-75% glandular tissue). Current study was also evaluated with a Computer Aided Detection (CAD) system. There are benign calcifications in both breasts. No significant masses, calcifications, or other findings are seen in either breast. There has been no significant interval change. IMPRESSION: BENIGN There is no mammographic evidence of malignancy. A 1 year screening mammogram is recommended. Based on the Tyrer Cuzick model (a risk assessment model) the patient's lifetime risk is 0.7% and her 10 year risk is 0.0%. According to the ACR, ACS, and NCCN guidelines, an annual breast MRI exam along with mammogram is recommended if the patient's lifetime risk is 20% or greater. This exam was interpreted at Station ID: [id number]. NOTE: For mammograms, a report in lay terms will be sent to the patient. Approximately 15% of breast malignancies will not be visualized mammographically. In the management of a palpable breast mass, a negative mammogram must not discourage biopsy of a clinically suspicious lesion. Electronically Signed By: Yani gardner/catrachita:10/08/2023 12:16:39 letter sent: Normal Exam ACR BI-RADS Category 2: Benign Finding(s) [id number]
== END ==
PROVIDERS: PCP Internal Medicine; Referring Provider Internal Medicine; Visit Provider Internal Medicine
DX: Z12.31 Encounter for screening mammogram for malignant neoplasm of breast (principal); Z80.3 Family history of malignant neoplasm of breast; R92.333 Mammographic heterogeneous density, bilateral breasts
CPT/HCPCS: 77063; 77067

== ENCOUNTER → 2024-03-04 11:51 | Outpatient (CLI) | payer MEDICARE, BC, SELFPAY ==
--- NOTE | 2024-03-04 11:53 | DI.US.S_ITS ---
PROCEDURE: US ARTERIAL DUPLEX LE BI INDICATIONS: NONRHEUMATIC MITRAL VALVE REGURG/BI LEG PAIN TECHNIQUE: Color and pulse Doppler interrogation was performed of both lower extremity arterial systems, with image documentation. COMPARISON: None. FINDINGS: Right lower extremity: Common femoral artery: 73 cm/sec, with triphasic flow. Deep femoral artery: 84 cm/sec, with triphasic flow. Proximal superficial femoral artery: 75 cm/sec, with triphasic flow. Mid superficial femoral artery: 65 cm/sec, with triphasic flow. Distal superficial femoral artery: 82 cm/sec, with triphasic flow. Popliteal artery: 51 cm/sec, with triphasic flow. Posterior tibial artery: 65 cm/sec, with triphasic flow. Anterior tibial artery/dorsalis pedis: 56 cm/sec, with triphasic flow. Ward-scale imaging description: Mild degree of plaque involving the anterior and posterior tibial arteries. Left lower extremity: Common femoral artery: 95 cm/sec, with triphasic flow. Deep femoral artery: 57 cm/sec, with triphasic flow. Proximal superficial femoral artery: 67 cm/sec, with triphasic flow. Mid superficial femoral artery: 78 cm/sec, with triphasic flow. Distal superficial femoral artery: 79 cm/sec, with triphasic flow. Popliteal artery: 53 cm/sec, with triphasic flow. Posterior tibial artery: 64 cm/sec, with triphasic flow. Anterior tibial artery/dorsalis pedis: 73 cm/sec, with triphasic flow. Ward-scale imaging description: Minimal degree of plaque throughout the anterior and posterior tibial arteries. Incidental note is made of a 4.3 cm anechoic collection within the left popliteal fossa compatible with Capone's cyst. IMPRESSION: No significant stenosis involving bilateral lower extremity arterial systems. Dictated by: Bhaskar Angeles M.D. on 03/04/2024 at 15:25 Approved by: Bhaskar Angeles M.D. on 03/04/2024 at 15:28
--- NOTE | 2024-03-04 11:53 | DI.ECHO.S_ITS ---
[place] [facility]+ [facility] : : [address] : : [place] : : [phone] : : Phone: [phone] Echocardiogram Report + + :Name: ORACIO GUZMAN Study Date: 03/04/2024 Height: 61 in : :[facility] ReadingLocation: Weight: 145 lb : : Gender: Female BSA: 1.6 m2 : :: 1940 Age: 83 yrs BP: 149/82 mmHg: :Reason For Study: MITRAL VALVE REGURGITATION : :Ordering Physician: KAT, : :JONY Performed By: Anne Vences : :Referring: JONY STEPHENS : + + Interpretation Summary The left ventricle is normal in size. The ejection fraction is estimated to be 60-65%. Previous LVEF 55 to 60%. Akinesis of distal septum, distal anterior wall, apex and distal inferior wall. Rest of the segments elena normally. Unchanged from the previous study. The right ventricle is normal in size and function. There is mild mitral regurgitation. Previously mild to moderate MR. Compared to the prior echo study, there has been a decrease in the severity of mitral regurgitation. There is mild to moderate aortic regurgitation. Compared to the prior echo study, there has been no change in the severity of aortic regurgitation. There is mild tricuspid regurgitation. Previously mild to moderate TR. Compared to the prior echo exam, there has been a decrease in TR severity. The right ventricular systolic pressure is estimated to be at least 24 mmHg based on an estimated right atrial pressure of 3 mm Hg. 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 4.1 cm in diameter, unchanged from the previous study. Procedure: A two-dimensional transthoracic echocardiogram with color flow and Doppler was performed. The study quality was technically adequate. Comparison is made with the echocardiogram of 04/24/2023. The patient was in sinus bradycardia with heart rates between 54-64 bpm during the exam. Left Ventricle: The left ventricle is normal in size. Left ventricular wall thickness is mildly increased. There is no thrombus. The ejection fraction is estimated to be 60-65%. Akinesis of distal septum, distal anterior wall, apex and distal inferior wall. Rest of the segments elena normally. Unchanged from the previous study. MV E/A: 0.72 Med Peak E' Ruben: 2.8 cm/sec E/E' med: 17.5. Previously pseudonormalization type of diastolic dysfunction. Right Ventricle: The right ventricle is normal in size and function. Atria: The left atrium is mildly dilated. The left atrium has mildly decreased in size since the prior echo exam. Right atrial size is normal. There is no Doppler evidence for an interatrial shunt. Mitral Valve: The mitral valve leaflets appear mildly thickened, but open well. There is mild mitral annular calcification. There is mild mitral regurgitation. Compared to the prior echo study, there has been a decrease in the severity of mitral regurgitation. Aortic Valve: The aortic valve is trileaflet. The aortic valve opens well. There is no aortic valve stenosis. There is mild to moderate aortic regurgitation. Compared to the prior echo study, there has been no change in the severity of aortic regurgitation. Tricuspid Valve: The tricuspid valve is normal. There is mild tricuspid regurgitation. The right ventricular systolic pressure is estimated to be at least 24 mmHg based on an estimated right atrial pressure of 3 mm Hg. Compared to the prior echo exam, there has been a decrease in TR severity. Pulmonic Valve: The pulmonic valve leaflets are thin and pliable; valve motion is normal. There is mild pulmonic regurgitation. Great Vessels: The aortic root is normal size. The ascending aorta is mild- moderately enlarged. There has been no significant change since the previous study. The IVC is of normal diameter and collapses greater than 50% with a sniff. This suggests a low right atrial pressure of 3 mm Hg. Pericardium/ Pleura There is no pericardial effusion. There is no pleural effusion. MMode/2D Measurements & Calculations LVIDd: 4.6 cm LVOT diam: 2.0 cm LVIDs: 2.9 cm Ao root diam: 3.3 cm FS: 36.4 % asc Aorta Diam: 4.1 cm IVSd: 1.1 cm Ao Arch Diam (Prox Trans): 3.5 cm LVPWd: 0.94 cm LV curiel. diameter/BSA (cm/m^2): 2.8 LV sys. diameter/BSA (cm/m^2): 1.8 LA A2 area: 17.9 cm2 RA long axis: 5.0 cm LA A4 area: 14.8 cm2 RA area: 14.1 cm2 LA length (vol): 4.3 cm RA vol: 33.8 ml LA vol: 51.9 ml RA : 20.5 ml/m2 LA vol index: 31.5 ml/m2 IVC diam: 1.3 cm RVD1 (basal): 2.7 cm TAPSE: 1.8 cm Doppler Measurements & Calculations Ao V2 max: 122.4 cm/sec LVOT Max Ruben: 82.9 cm/sec Ao V2 mean: 87.0 cm/sec LV V1 max P.8 mmHg Ao max P.0 mmHg LV V1 VTI: 19.1 cm Ao mean P.4 mmHg BRANDON(I,D): 2.1 cm2 Ao V2 VTI: 27.8 cm BRANDON(V,D): 2.1 cm2 sev ratio: 0.69 BRANDON indexed to BSA (cm^2/m^2): 1.3 AI P1/2t: 718.8 msec AI dec slope: 179.5 cm/sec2 MV E max ruben: 48.8 cm/sec TR max ruben: 227.6 cm/sec MV A max ruben: 67.7 cm/sec TR max P.7 mmHg MV E/A: 0.72 PA V2 max: 85.4 cm/sec Med Peak E' Ruben: 2.8 cm/sec PA V2 mean: 57.8 cm/sec E/E' med: 17.5 PA mean P.5 mmHg Lat Peak E' Ruben: 3.7 cm/sec PA pr(Accel): 32.8 mmHg E/E' lat: 13.2 E/e' average: 15.4 MV dec time: 0.24 sec SV(LVOT): 59.0 ml Reading Physician:04:07 PM
== END ==
LOC: ECHO 11:52
PROVIDERS: PCP Internal Medicine; Referring Provider Internal Medicine Cardiovascular Disease; Visit Provider Internal Medicine Cardiovascular Disease
DX: I08.3 Combined rheumatic disorders of mitral, aortic and tricuspid valves (principal); I77.89 Other specified disorders of arteries and arterioles; M79.605 Pain in left leg; M79.604 Pain in right leg
CPT/HCPCS: 93306; 93925

== ENCOUNTER → 2024-03-25 07:06 | Outpatient (CLI) | payer MEDICARE, BC, SELFPAY ==
[2024-03-25 07:52] LABS: Add Manual Diff / Slide Review NO; Basophils Absolute Auto 100 /uL (0-100); Basophils Percent Auto 0.9 % (0-2); Eosinophils Absolute Auto 300 /uL (0-450); Eosinophils Percent Auto 5.1 % (2-4); Hematocrit 40.4 % (36-46); Hemoglobin 13.7 g/dL (12.0-16.0); Lymphocytes Absolute Auto 2000 /uL (1100-4500); Lymphocytes Percent Auto 29.5 % (25-40); Monocytes Absolute Auto 800 /uL (0-900); Monocytes Percent Auto 11.8 % (3-14); Neutrophils Absolute Auto 3500 /uL (1500-7000); Neutrophils Percent Auto 52.7 % (50-75); Platelet Count 261 X10^3/uL (150-400); Red Blood Cell Count 4.44 X10^6/uL (4.0-5.2); Red Cell Distribution Width 13.8 % (11.6-14.8); White Blood Cell Count 6.6 X10^3/uL (4.5-11.0)
[2024-03-25 08:39] LABS: Alanine Aminotransferase 15 IU/L (<35); Albumin Globulin Ratio 1.5 (1.0-2.8); Alkaline Phosphatase 95 U/L (38-126); Aspartate Aminotransferase 34 IU/L (14-36); BUN Creatinine Ratio 36.2 (6-22); Bilirubin Total 0.7 mg/dL (0.2-1.3); Blood Urea Nitrogen 25 mg/dL (7-17); Calcium 9.1 mg/dL (8.4-10.2); Carbon Dioxide 28 mmol/L (22-32); Chloride 103 mmol/L (98-107); Cholesterol 205 mg/dL (140-199); Estimated Glomerular Filt Rate > 60 mL/min (>60); Globulin 2.7 g/dL (1.7-4.1); Glucose 99 mg/dL (80-110); HDL Cholesterol 59 mg/dL (40-60); HEMOLYSIS < 15 (0-50); LDL Cholesterol Calculated 122 mg/dL (<100); Potassium 4.1 mmol/L (3.4-5.1); Sodium 137 mmol/L (137-145); Total Protein 6.7 g/dL (6.3-8.2); Triglycerides 120 mg/dL (35-150)
[2024-03-25 08:42] LABS: TSH w/ Reflex to FT4 2.63 uIU/mL (0.47-4.68)
== END ==
PROVIDERS: PCP Internal Medicine; Referring Provider Internal Medicine; Visit Provider Internal Medicine
DX: E78.2 Mixed hyperlipidemia (principal); I10 Essential (primary) hypertension; I25.10 Atherosclerotic heart disease of native coronary artery without angina pectoris; E03.9 Hypothyroidism, unspecified; D64.9 Anemia, unspecified
CPT/HCPCS: 36415; 80053; 80061; 84443; 85025

== ENCOUNTER → 2024-10-08 08:13 | Outpatient (CLI) | payer MEDICARE, BC, SELFPAY ==
--- NOTE | 2024-10-08 08:14 | DI.MG.S_ITS ---
MM screening mammo BI: 10/08/2024. BI-RADS: 1 CLINICAL: 83-year old female for bilateral screening mammogram. No Tyrer-Cuzick risk score calculation due to patient's age being over 85 years old. Current reported family history of breast cancer: sister. PRIOR EXAMS 10/08/2023, 08/30/2022, 08/29/2021, 08/23/2020, 09/09/2017, 09/06/2016, 08/19/2015, 08/12/2015. MAMMOGRAPHY TECHNIQUE: 2D and 3D (tomosynthesis) digital mammographic views obtained, with additional images as needed for full coverage. Current study was also evaluated with a Computer Aided Detection (CAD) system. DENSITY C. The breasts are heterogeneously dense, which may obscure small masses. MAMMOGRAPHY FINDINGS Bilateral: No suspicious mass, asymmetry, microcalcification, or other abnormality seen. IMPRESSION: * No evidence of malignancy. RECOMMENDATIONS Bilateral * Annual screening mammography. OVERALL ASSESSMENT CATEGORY BI-RADS-1: Negative. The [employer] recommends annual screening mammography beginning at age 40 for women with average risk of breast cancer. ELECTRONICALLY SIGNED: Cyril Richmond M.D. on 10/08/2024 at 05:59:45 PM PT Interpreting Station ID: [id number]
== END ==
PROVIDERS: PCP Internal Medicine; Referring Provider Internal Medicine; Visit Provider Internal Medicine
DX: Z12.31 Encounter for screening mammogram for malignant neoplasm of breast (principal); Z80.3 Family history of malignant neoplasm of breast; R92.333 Mammographic heterogeneous density, bilateral breasts
CPT/HCPCS: 77063; 77067

== ENCOUNTER → 2024-10-27 10:41 | Outpatient (CLI) | payer MEDICARE, BC, SELFPAY ==
--- NOTE | 2024-10-27 10:44 | DI.RAD.S_ITS ---
PROCEDURE: XR CHEST 2V INDICATIONS: cough TECHNIQUE: 2 views of the chest were acquired. COMPARISON: [facility], CR, XR CHEST 2V, 05/13/2023, 11:07. FINDINGS: Heart, mediastinum and pulmonary vascular: Heart is normal in size and configuration. Mediastinum is unremarkable. Pulmonary vascular is normal. Lungs: Clear Pleural spaces: Normal-no effusions or pneumothorax. Bones and soft tissues: Mild chronic wedging of the upper midthoracic vertebral bodies noted with moderate degenerative disc disease at each level. IMPRESSION: No acute cardiopulmonary disease Dictated by: Jose Cobos M.D. on 10/28/2024 at 11:43 Approved by: Jose Cobos M.D. on 10/28/2024 at 11:44
== END ==
PROVIDERS: PCP Internal Medicine; Referring Provider Internal Medicine; Visit Provider Internal Medicine
DX: R05.9 Cough, unspecified (principal); M51.34 Other intervertebral disc degeneration, thoracic region; M48.54XA Collapsed vertebra, not elsewhere classified, thoracic region, initial encounter for fracture
CPT/HCPCS: 71046

== ENCOUNTER → 2024-12-18 09:48 | Outpatient (CLI) | payer MEDICARE, BC, SELFPAY ==
[2024-12-18 10:35] LABS: Add Manual Diff / Slide Review NO; Hematocrit 39.5 % (36-46); Hemoglobin 13.7 g/dL (12.0-16.0); Lymphocytes Absolute Auto 1800 /uL (1100-4500); Mean Corpuscular HGB Conc 34.7 % (30-36); Mean Corpuscular Hemoglobin 31.7 PG (26-34); Mean Corpuscular Volume 91.4 fL (80-100); Platelet Count 255 X10^3/uL (150-400)
[2024-12-18 10:54] LABS: Alanine Aminotransferase 17 IU/L (<35); Albumin 4.1 g/dL (3.5-5.0); Albumin Globulin Ratio 1.5 (1.0-2.8); Alkaline Phosphatase 91 U/L (38-126); Blood Urea Nitrogen 19 mg/dL (7-17); Calcium 9.2 mg/dL (8.4-10.2); Carbon Dioxide 28 mmol/L (22-32); Chloride 100 mmol/L (98-107); Estimated Glomerular Filt Rate > 60 mL/min (>60); Globulin 2.8 g/dL (1.7-4.1); Glucose 80 mg/dL (70-99); HEMOLYSIS < 15 (0-50); Potassium 3.9 mmol/L (3.4-5.1); Sodium 136 mmol/L (137-145); Total Protein 6.9 g/dL (6.3-8.2)
[2024-12-18 11:27] LABS: TSH w/ Reflex to FT4 2.01 uIU/mL (0.47-4.68)
== END ==
PROVIDERS: PCP Internal Medicine; Referring Provider Internal Medicine; Visit Provider Internal Medicine
DX: E78.2 Mixed hyperlipidemia (principal); I10 Essential (primary) hypertension; E03.9 Hypothyroidism, unspecified
CPT/HCPCS: 36415; 80053; 84443; 85025; 85651